=== PATIENT | female | born 1985 | race African-American/Black ===

== ENCOUNTER 2016-09-29 16:19 | Emergency (ER) | payer OTHER ==
--- NOTE | 2016-09-29 16:35 | UC ---
Bite Injury/Animal HPI - HPI Summary HPI Summary: 31 YEAR OLD FEMALE PRESENTS WITH COMPLAINS OF RASH SECONDARY TO POSSIBLE INSECT BITE LEFT SHOULDER. - History of Current Complaint Stated Complaint: INSECT BITE Time Seen by Provider: 09/29/16 16:34 Hx Obtained From: Patient Hx Last Menstrual Period: 2009 - has a brain tumor - prolactinomia causes amenorrhea Severity Currently: Moderate Severity Initially: Moderate Pain Scale Used: 0-10 Numeric - 6 Onset/Duration: Sudden Onset Type of Bite: Animal Character: Puncture Aggravating Factor(s): Nothing Alleviating Factor(s): Nothing Associated Signs And Symptoms: Positive: Erythema, Swelling - Allergies/Home Medications Allergies/Adverse Reactions: Allergies Allergy/AdvReac Type Severity Reaction Status Date / Time Bee Venom Allergy Severe Hives Verified 09/29/16 16:42 Shellfish Allergy Allergy Hives/Diff. Verified 09/29/16 16:42 Breathing/I tching Mushrooms Allergy Severe Swelling Uncoded 09/29/16 16:42 CT DYE Allergy STATES Uncoded 09/29/16 16:42 ALLERGY PER PRIMARY'S OFFICE Home Medications: Home Medications Cabergoline 0.25 cap PO SEE INSTRUCTIONS 09/29/16 [History Confirmed 09/29/16] Sertraline* [Zoloft*] 1 cap PO DAILY 09/29/16 [History Confirmed 09/29/16] PMH/Surg Hx/FS Hx/Imm Hx Previously Healthy: Yes - Surgical History Surgical History: Yes Surgery Procedure, Year, and Place: pituitary tumor brain surgery 08/2006-[facility]; HERNIA REPAIR 07/2013 - Social History Alcohol Use: Rare Substance Use Type: None Smoking Status (MU): Never Smoked Tobacco Type: Cigarettes Amount Used/How Often: 1/2 PPD X 3 YEARS Review of Systems Constitutional: Negative Skin: Other - INSECT BITE LEFT SHOULDER Eyes: Negative ENT: Negative Respiratory: Negative Cardiovascular: Negative Gastrointestinal: Negative Genitourinary: Negative Motor: Negative Neurovascular: Negative Musculoskeletal: Negative Neurological: Negative Psychological: Negative All Other Systems Reviewed And Are Negative: Yes Physical Exam Triage Information Reviewed: Yes Appearance: Well-Appearing Vital Signs Reviewed: Yes Eye Exam: Normal ENT Exam: Normal Dental Exam: Normal Neck exam: Normal Neck: Positive: 1 Respiratory Exam: Normal Cardiovascular Exam: Normal Abdominal Exam: Normal Musculoskeletal Exam: Normal Neurological Exam: Normal Psychological Exam: Normal Skin Exam: Normal - SHOULDER INSECT BITE Skin: Positive: rashes Bite Injury Course/Dx - Differential Dx/Diagnosis Provider Diagnoses: LEFT RASH RASH/INSECT BITE Discharge - Discharge Plan Condition: Stable Disposition: HOME Prescriptions: Cephalexin CAP* [Keflex CAP*] 500 mg PO TID #21 cap Mupirocin 2% OINT* [Bactroban 2 % Oint*] 1 applic TOPICAL BID #1 tube Patient Education Materials: Insect Bite or Sting (ED) Forms: *Work Release Referrals: Brenda Baker MD [Primary Care Provider] - If Needed
[2016-09-29 16:42] VITALS: BP 121/84
== END 2016-09-29 17:16 | disposition home or self-care (01) ==
LOC: UCEAST 16:19
DX: R21 Rash and other nonspecific skin eruption (principal); S40.262A Insect bite (nonvenomous) of left shoulder, initial encounter; W57.XXXA Bitten or stung by nonvenomous insect and other nonvenomous arthropods, initial encounter; Z87.891 Personal history of nicotine dependence
CPT/HCPCS: 99212; G0463

== ENCOUNTER 2017-04-09 20:35 | Emergency (ER) | payer OTHER ==
--- NOTE | 2017-04-09 20:52 | UC ---
Back Pain HPI - HPI Summary HPI Summary: Pt presents with abdominal pain, nausea, and vomiting for 6 days. She tells me about 1 week ago she began to have generalized abdominal pain, nausea, and vomiting. These symptoms persisted 2 days and she had not had a bowel movement and felt that she would improve if she could have a BM - so she drank 1 bottle of mag citrate. About 3 hours later she had a moderate BM that was hard - followed by watery diarrhea. During this time she was also vomiting and unable to tolerate anything more than soup broth. She tells me that her vomit reminded her a grounded up [employer] bar and was dark in color. Her stool at times was also very dark in color. For the last 2 days she has been having RLQ abdominal pain, right flank pain, nausea, vomiting, and unable to tolerate any foods greater than soup broth and liquids. Denies fever, chills, SOB, chest pain, headache, or dizziness. - History of Current Complaint Stated Complaint: BACK PAIN, CRAMPING Time Seen by Provider: 04/09/17 20:51 Hx Obtained From: Patient Hx Last Menstrual Period: 2009 - has a brain tumor - prolactinomia causes amenorrhea Onset/Duration: Gradual Onset Timing: Constant Severity Initially: Moderate Severity Currently: Moderate Pain Intensity: 7 Pain Scale Used: 0-10 Numeric - Allergies/Home Medications Allergies/Adverse Reactions: Allergies Allergy/AdvReac Type Severity Reaction Status Date / Time bee venom protein (honey bee) Allergy anaphylaxis Verified 04/09/17 21:01 shellfish derived Allergy anaphylaxis Verified 04/09/17 21:01 Mushrooms Allergy Severe Swelling Uncoded 04/09/17 21:00 CT DYE Allergy STATES Uncoded 04/09/17 21:00 ALLERGY PER PRIMARY'S OFFICE Home Medications: Home Medications Albuterol HFA INHALER* 2 puff INH Q4HR 04/09/17 [History Confirmed 04/09/17] Ketoconazole 1 dose TOPICAL BEDTIME 04/09/17 [History Confirmed 04/09/17] PMH/Surg Hx/FS Hx/Imm Hx Endocrine History: Thyroid Disease Psychological History: Anxiety, Depression - Surgical History Surgical History: Yes Surgery Procedure, Year, and Place: pituitary tumor brain surgery 08/2006-[facility]; HERNIA REPAIR 07/2013 - Social History Occupation: Employed Full-time Lives: With Family Alcohol Use: Rare Substance Use Type: None Smoking Status (MU): Never Smoked Tobacco Type: Cigarettes Amount Used/How Often: 1/2 PPD X 3 YEARS Review of Systems Constitutional: Negative Skin: Negative Respiratory: Negative Cardiovascular: Negative Gastrointestinal: Abdominal Pain, Vomiting, Diarrhea, Nausea Genitourinary: Negative Neurovascular: Negative Musculoskeletal: Negative Neurological: Negative Psychological: Negative All Other Systems Reviewed And Are Negative: Yes Physical Exam Triage Information Reviewed: Yes Appearance: Well-Appearing, No Pain Distress, Obese Vital Signs Reviewed: Yes Neck: Positive: Supple, Nontender, No Lymphadenopathy Respiratory: Positive: Lungs clear, Normal breath sounds, No respiratory distress, No accessory muscle use Cardiovascular: Positive: RRR, No Murmur, Pulses Normal Abdomen Description: Positive: No Organomegaly, Soft, McBurney's Point Tenderness - Mild. Negative: CVA Tenderness (R), CVA Tenderness (L), Distended , Guarding, Hernia @ Bowel Sounds: Positive: Present Neurological: Positive: Alert Psychological: Positive: Age Appropriate Behavior Skin: Negative: rashes Back Pain Course/Dx - Course Course Of Treatment: Given her symptoms, I am concerned that she has a GI bleed of undetermined significance. I have advised her to go to the [facility] for further evaluation of her pain and dark stools. She was agreeable to this plan and called an uber. Left in stable condition. - Differential Dx/Diagnosis Provider Diagnoses: RLQ abdominal pain. Nausea. Vomiting. Dark stools Discharge - Discharge Plan Condition: Stable Disposition: OTHER Discharge Disposition Comment: To [facility] by private car. Uber driving her Referrals: Brenda Baker MD [Primary Care Provider] - Additional Instructions: Please go directly to the [facility] for further evaluation of your abdominal pain, dark vomiting, and dark stools.
[2017-04-09 21:00] VITALS: BP 142/88
== END 2017-04-09 21:36 ==
LOC: UCEAST 20:35
DX: R10.31 Right lower quadrant pain (principal); R11.2 Nausea with vomiting, unspecified; R19.5 Other fecal abnormalities; E07.9 Disorder of thyroid, unspecified; F41.9 Anxiety disorder, unspecified; F32.9 Major depressive disorder, single episode, unspecified; Z91.030 Bee allergy status; Z91.041 Radiographic dye allergy status; Z91.013 Allergy to seafood
CPT/HCPCS: 99212; G0463

== ENCOUNTER 2017-04-09 22:42 | Emergency (ER) | payer OTHER ==
[2017-04-10 01:37] LABS: ABS Basophils 0.1 10^3/ul (0-0.2); ABS Eosinophils 0.1 10^3/ul (0-0.6); ABS Lymphocytes 4.7 10^3/ul (1.0-4.8); ABS Monocytes 0.7 10^3/ul (0-0.8); ABS Nucleated RBC 0 10^3/ul; Eosinophil % 1.3 % (0-6); Hematocrit 40 % (35-47); Hemoglobin 13.4 g/dl (12.0-16.0); Lymphocyte % 49.3 % (25-47); Mean Corpuscular HGB Conc 34 g/dl (31-36); Mean Corpuscular Hemoglobin 30 pg (27-31); Mean Corpuscular Volume 87 fL (80-97); Mean Platelet Volume 8 um3 (7.4-10.4); Nucleated Red Blood Cells % 0.1; Platelet Count 365 10^3/ul (150-450); Red Blood Count 4.52 10^6/ul (4.0-5.4); Red Cell Distribution Width 13 % (10.5-15); White Blood Count 9.6 10^3/ul (3.5-10.8)
[2017-04-10 01:54] LABS: EGFR Non-African American 76.4 (>60)
[2017-04-10 02:36] LABS: Urine Appearance Clear; Urine Blood Negative (Negative); Urine Color Yellow; Urine Ketones Negative (Negative); Urine Protein Negative (Negative); Urine Specific Gravity 1.015 (1.010-1.030); Urine Urobilinogen Negative (Negative)
[2017-04-10] MEDS ORDERED: Ondansetron INJ* 2 MG/ML VIAL IV ONE (02:45)
[2017-04-10] MEDS ORDERED: Ketorolac INJ* 30 MG/ML 1 ML VIAL IV PUSH ONE (02:45)
[2017-04-10] MEDS ORDERED: NS 0.9% 1000 ML* 1,000 ML IV ONE (02:45)
[2017-04-10] MEDS ORDERED: Sulfamethox/Trimethoprim DS 800/160* TAB PO ONE (04:32)
--- NOTE | 2017-04-10 05:07 | ED ---
Yaneli Linda Gabriel, scribed for Roby Delgado MD on 04/10/17 at 0250 . Abdominal Pain/Female - HPI Summary HPI Summary: This patient is a 31 year old F presenting to [facility] accompanied by her family with a chief complaint of RLQ pain that began 5 days ago. The patient rates the intermittent pain 7/10 in severity and radiating into her back. Patient reports vomiting, constipation, and ABD bloating. Pt has not had a BM since 04-07-17. - History of Current Complaint Chief Complaint: EDAbdPain Stated Complaint: ABD PAIN/VOMITING Hx Obtained From: Patient Hx Last Menstrual Period: 2009 - has a brain tumor - prolactinomia causes amenorrhea Onset/Duration: Still Present Timing: Constant Severity Initially: Moderate Severity Currently: Moderate Pain Intensity: 7 Pain Scale Used: 0-10 Numeric Location: Diffuse Radiates: No Associated Signs and Symptoms: Positive: Constipation, Vomiting, Other: - ABD bloating Allergies/Adverse Reactions: Allergies Allergy/AdvReac Type Severity Reaction Status Date / Time bee venom protein (honey bee) Allergy anaphylaxis Verified 04/09/17 22:52 shellfish derived Allergy anaphylaxis Verified 04/09/17 22:52 Mushrooms Allergy Severe Swelling Uncoded 04/09/17 22:52 CT DYE Allergy STATES Uncoded 04/09/17 22:52 ALLERGY PER PRIMARY'S OFFICE PMH/Surg Hx/FS Hx/Imm Hx Endocrine/Hematology History: Reports: Hx Diabetes - BORDERLINE- INSULIN RESISTENT-CONTROL WITH DIET, Hx Thyroid Disease - HYPOTHYROID, NODULAR GOITERS Cardiovascular History: Denies: Hx Hypertension, Hx Pacemaker/ICD Respiratory History: Reports: Hx Asthma - INDUCED WITH EXERCISE, Hx Sleep Apnea - ?? NOT DIAGNOSED Denies: Hx Chronic Obstructive Pulmonary Disease (COPD) GI History: Reports: Hx Gastroesophageal Reflux Disease - HX OF -CONTROL WITH DIET Denies: Hx Ulcer History: Reports: Hx Kidney Stones - IN THE PAST Musculoskeletal History: Reports: Hx Arthritis - HAS SYMPTOMS AT TIMES DURING THE WINTER Sensory History: Reports: Hx Contacts or Glasses - WILL WEAR GLASSES DAY OF SURGERY, Hx Vision Problem - adenoma pressing on optic nerve Denies: Hx Hearing Aid Opthamlomology History: Reports: Hx Contacts or Glasses - WILL WEAR GLASSES DAY OF SURGERY, Hx Vision Problem - adenoma pressing on optic nerve Neurological History: Reports: Hx Headaches - A FEW TIMES A WEEK-TX WITH TYLENOL OR HOT TEA, Other Neuro Impairments/Disorders - pituitary adenoma Psychiatric History: Denies: Hx Panic Disorder - Surgical History Surgery Procedure, Year, and Place: pituitary tumor brain surgery 08/2006-[facility]; HERNIA REPAIR 07/2013 Hx Anesthesia Reactions: No Infectious Disease History: No Infectious Disease History: Denies: Hx Clostridium Difficile, Hx Hepatitis, Hx Human Immunodeficiency Virus (HIV), Hx of Known/Suspected MRSA, Hx Shingles, Hx Tuberculosis, Traveled Outside the [place] in Last 30 Days - Family History Known Family History: Negative: Renal Disease, Respiratory Disease, Seizure Disorder - Social History Lives: With Family Alcohol Use: Rare Substance Use Type: Reports: None Smoking Status (MU): Light Every Day Tobacco Smoker Type: Cigarettes Amount Used/How Often: 1/2 PPD X 3 YEARS Review of Systems Negative: Fever Positive: Abdominal Pain - and bloating , Vomiting, Other - constipation All Other Systems Reviewed And Are Negative: Yes Physical Exam - Summary Physical Exam Summary: VITAL SIGNS: Reviewed. GENERAL: Patient is a well-developed and nourished female who is lying comfortable in the stretcher. Patient is not in any acute respiratory distress. HEAD AND FACE: No signs of trauma. No ecchymosis, hematomas or skull depressions. No sinus tenderness. EYES: PERRLA, EOMI x 2, No injected conjunctiva, no nystagmus. EARS: Hearing grossly intact. Ear canals and tympanic membranes are within normal limits. MOUTH: Oropharynx within normal limits. NECK: Supple, trachea is midline, no adenopathy, no JVD, no carotid bruit, no c- spine tenderness, neck with full ROM. CHEST: Symmetric, no tenderness at palpation LUNGS: Clear to auscultation bilaterally. No wheezing or crackles. CVS: Regular rate and rhythm, S1 and S2 present, no murmurs or gallops appreciated. ABDOMEN: Soft, mildly TTP over RLQ. No signs of distention. No rebound no guarding, and no masses palpated. Bowel sounds are normal. EXTREMITIES: FROM in all major joints, no edema, no cyanosis or clubbing. NEURO: Alert and oriented x 3. No acute neurological deficits. Speech is normal and follows commands. SKIN: Dry and warm Triage Information Reviewed: Yes Vital Signs On Initial Exam: Initial Vitals Temp Pulse Resp BP Pulse Ox 97.3 F 83 16 129/93 98 04/09/17 22:47 02/28/18 22:47 04/09/17 22:47 04/09/17 22:47 04/09/17 22:47 Vital Signs Reviewed: Yes Diagnostics - Vital Signs Vital Signs Temp Pulse Resp BP Pulse Ox 04/09/17 22:47 97.3 F 83 16 129/93 98 - Laboratory Lab Results: Lab Results 04/10/17 04/10/17 04/10/17 Range/Units 01:15 01:15 01:29 WBC 9.6 (3.5-10.8) 10^3/ul RBC 4.52 (4.0-5.4) 10^6/ul Hgb 13.4 (12.0-16.0) g/dl Hct 40 (35-47) % MCV 87 (80-97) fL MCH 30 (27-31) pg MCHC 34 (31-36) g/dl RDW 13 (10.5-15) % Plt Count 365 (150-450) 10^3/ul MPV 8 (7.4-10.4) um3 Neut % (Auto) 41.3 (38-83) % Lymph % (Auto) 49.3 H (25-47) % [place] % (Auto) 7.6 H (0-7) % Eos % (Auto) 1.3 (0-6) % Baso % (Auto) 0.5 (0-2) % Absolute Neuts (auto) 4.0 (1.5-7.7) 10^3/ul Absolute Lymphs (auto) 4.7 (1.0-4.8) 10^3/ul Absolute Monos (auto) 0.7 (0-0.8) 10^3/ul Absolute Eos (auto) 0.1 (0-0.6) 10^3/ul Absolute Basos (auto) 0.1 (0-0.2) 10^3/ul Absolute Nucleated RBC 0 10^3/ul Nucleated RBC % 0.1 Sodium 136 (133-145) mmol/L Potassium 3.8 (3.5-5.0) mmol/L Chloride 104 (101-111) mmol/L Carbon Dioxide 27 (22-32) mmol/L Anion Gap 5 (2-11) mmol/L BUN 11 (6-24) mg/dL Creatinine 0.87 (0.51-0.95) mg/dL Est GFR ( Amer) 98.3 (>60) Est GFR (Non-Af Amer) 76.4 (>60) BUN/Creatinine Ratio 12.6 (8-20) Glucose 83 (70-100) mg/dL Calcium 9.6 (8.6-10.3) mg/dL Total Bilirubin 0.30 (0.2-1.0) mg/dL AST 18 (13-39) U/L ALT 16 (7-52) U/L Alkaline Phosphatase 53 (34-104) U/L C-Reactive Protein 1.90 (< 5.00) mg/L Total Protein 7.9 (6.4-8.9) g/dL Albumin 4.4 (3.2-5.2) g/dL Globulin 3.5 (2-4) g/dL Albumin/Globulin Ratio 1.3 (1-3) Lipase 26 (11.0-82.0) U/L Urine Color Yellow Urine Appearance Clear Urine pH 5.0 (5-9) Ur Specific [place] 1.015 (1.010-1.030) Urine Protein Negative (Negative) Urine Ketones Negative (Negative) Urine Blood Negative (Negative) Urine Nitrate Negative (Negative) Urine Bilirubin Negative (Negative) Urine Urobilinogen Negative (Negative) Ur Leukocyte Esterase 3+ A (Negative) Urine WBC (Auto) 3+(>20/hpf) A (Absent) Urine RBC (Auto) 1+(3-5/hpf) A (Absent) Urine Bacteria Absent (Absent) Urine Glucose Negative (Negative) Urine Ascorbic Acid * A (Negative) Result Diagrams: 04/10/17 01:15 04/10/17 01:15 Lab Statement: Any lab studies that have been ordered have been reviewed, and results considered in the medical decision making process. - CT CT ABD/Pelvis CT Interpretation Completed By: Radiologist - no evidence of acute pathology ED physician has reviewed this radiology report. Abdominal Pain Fem Course/Dx - Course Course Of Treatment: This patient is a 31 year old F presenting to [facility] accompanied by her family with a chief complaint of RLQ pain that began 5 days ago. The patient rates the intermittent pain 7/10 in severity and radiating into her back. Patient reports vomiting, constipation, and ABD bloating. Pt has not had a BM since 04-07-17. CT ABD/Pelvis reveals, per radiologist, no evidence of acute pathology. Test results with no significant abnormalities. In the ED course the patient was given toradol, zofran, and IV fluids. Dx UTI. Patient will be discharged with prescription for Abx and follow up from PCP. The patient is agreeable with this plan - Diagnoses Provider Diagnoses: UTI (urinary tract infection) Discharge - Discharge Plan Condition: Stable Disposition: HOME Referrals: Brenda Baker MD [Primary Care Provider] - 3 Days Additional Instructions: RETURN TO EMERGENCY DEPARTMENT FOR ANY NEW OR WORSENING SYMPTOMS The documentation as recorded by the Yaneli li Gabriel accurately reflects the service I personally performed and the decisions made by , Roby Delgado MD.
[2017-04-10 05:23] VITALS: BP 116/89
--- NOTE | 2017-04-10 08:34 | RAD ---
INDICATION: Abdominal pain. Right groin pain. COMPARISON: CT abdomen pelvis June 30, 2013 TECHNIQUE: Noncontrast axial source images were obtained from the hemidiaphragms to the symphysis pubis. This examination was ordered using a renal stone protocol which is performed without oral or intravenous contrast and therefore has inherent limitations when used to evaluate other intra-abdominal or intrapelvic pathology. Consider conventional contrast enhanced imaging if clinically indicated. Lung bases: The lung bases are clear. Liver: The liver is enlarged with findings of hepatic steatosis. Noncontrast imaging shows no evidence of a hepatic mass or ductal dilatation. Gallbladder: There are no calcified gallstones. There is no evidence of wall thickening or pericholecystic fluid.. Spleen: The spleen is normal in size. The noncontrast CT appearance is normal. Pancreas: Noncontrast imaging shows no pancreatic mass or ductal dilitation. Adrenal glands: No masses are identified. Kidneys/Bladder: There is a 2 mm, nonobstructive, lower pole right renal calculus. There are no other calculi of urinary significance. There are multiple phleboliths. CT evidence of hydronephrosis. Noncontrast imaging shows no evidence of a renal mass. The bladder is unremarkable.. Adenopathy: There is no evidence of intraperitoneal or retroperitoneal adenopathy. Evaluation is limited without oral contrast. Fluid collections: There are no free or localized fluid collections. Vessels: The aorta and iliac vessels are normal in caliber. There are no significant atherosclerotic changes. The IVC appears normal Pelvic organs: The uterus and adnexa appear normal GI tract: Evaluation of the bowel is limited without oral contrast. The stomach, small bowel, and lower GI tract appear grossly normal. There are no obstructive findings. The appendix is visualized and appears normal. Soft tissues: No soft tissue abnormalities of the extraperitoneal abdomen or pelvis are identified. Osseous structures: There are no acute osseous findings. IMPRESSION: NONOBSTRUCTIVE 2 MM LOWER POLE RIGHT RENAL CALCULUS. FINDINGS CALLED TO EMERGENCY DEPARTMENT ON APRIL 10, 2017.
== END 2017-04-10 04:50 | disposition home or self-care (01) ==
LOC: ED 22:42
DX: N39.0 Urinary tract infection, site not specified (principal); K59.00 Constipation, unspecified; R11.10 Vomiting, unspecified; R10.31 Right lower quadrant pain; F17.210 Nicotine dependence, cigarettes, uncomplicated; Z87.442 Personal history of urinary calculi; Z87.09 Personal history of other diseases of the respiratory system
CPT/HCPCS: 36415; 74176; 80053; 81003; 81015; 83690; 84702; 85025; 86140; 87086; 96374; 96375; 99282; A9270-GY; J1885; J2405